=== PATIENT | female | born 1960 | race Two or more races ===

== ENCOUNTER 2018-09-01 21:15 | Emergency (ER) | payer SELFPAY ==
[~2018-09-01] VITALS: Ht 160 cm; Wt 81.6 kg
[2018-09-01 21:27] VITALS: Ht 160 cm; Wt 81.6 kg
[2018-09-01 22:10] LABS: PLATELET COUNT 235 x10^3mcL (130-400); RED CELL DISTRIBUTION WIDTH 12.9 % (11.5-14.5)
[2018-09-01 22:12] LABS: BASOPHIL % 0 % (0-2)
[2018-09-01 22:21] LABS: CALCIUM 9.5 mg/dL (8.5-10.1); CARBON DIOXIDE 26.3 mmol/L (21-32); CHLORIDE SERUM 104 mmol/L (98-107); CREATININE SERUM 0.9 mg/dL (0.6-1.0); GFR1 > 60 mL/min; GLUCOSE SERUM 254 mg/dL (74-106); POTASSIUM SERUM 3.9 mmol/L (3.5-5.1); SODIUM SERUM 139 mmol/L (136-145)
[2018-09-01 22:25] LABS: ALBUMIN 3.8 g/dL (3.4-5.0); ALKALINE PHOSPHATASE 129 U/L (46-116); ALT/SGPT 38 U/L (14-59); AST/SGOT 12 U/L (15-37); BILIRUBIN TOTAL 0.19 mg/dL (0.20-1.00); TOTAL PROTEIN, SERUM 7.5 g/dL (6.4-8.2)
[2018-09-01 23:36] LABS: AMPHETAMINE QUAL UR NONE DETECTED (See below)
[2018-09-02 13:12] VITALS: BP 141/79
== END 2018-09-02 13:12 | disposition home or self-care (01) ==
LOC: ED 21:15
PROVIDERS: Emergency Medicine
DX: F20.0 Paranoid schizophrenia (principal); Z72.89 Other problems related to lifestyle
CPT/HCPCS: 36415; G0480